=== PATIENT | male | born 1995 | race Caucasian/White ===

== ENCOUNTER 2018-09-09 19:54 | Emergency (ER) | payer SELFPAY ==
[2018-09-09] MEDS ORDERED: Ketorolac Tromethamine 30 MG/ML VIAL ONE (20:31)
[2018-09-09] MEDS ORDERED: Ketorolac Tromethamine 60 MG/2 ML VIAL ONE (20:31)
--- NOTE | 2018-09-09 21:55 | RAD ---
FOUR VIEWS RIGHT KNEE 09/09/18 HISTORY: Right knee pain after slipping and falling. FINDINGS: There is no evidence of a fracture, dislocation, or other osseous abnormality involving the right kne e. IMPRESSION: No acute osseous abnormality. POS: [facility]
== END 2018-09-09 21:45 | disposition home or self-care (01) ==
LOC: EDBD 19:54 → ERS 19:54
DX: S83.91XA Sprain of unspecified site of right knee, initial encounter (principal); F17.210 Nicotine dependence, cigarettes, uncomplicated; W01.0XXA Fall on same level from slipping, tripping and stumbling without subsequent striking against object, initial encounter
CPT/HCPCS: 96372; J1885